=== PATIENT | male | born 1950 | race Two or more races ===

== ENCOUNTER 2017-01-20 10:02 | Day surgery (SDC) | payer MEDICARE, OTHER ==
[2017-01-13 07:51] VITALS: BMI 27.8
[2017-01-20] MEDS ORDERED: Sodium Chloride 0.9% 1,000 ML IV SCH (12:00)
[2017-01-20] MEDS ORDERED: Propofol 10 mg/ml Inj (20 ML) ONE (12:03)
[2017-01-20 13:03] VITALS: PULSE 51
[2017-01-20 13:27] VITALS: BP 150/86; RESP 16; TEMP 97.8; O2SAT 97
== END 2017-01-20 13:33 | disposition home or self-care (01) ==
LOC: ENDO 10:02
PROVIDERS: ATTEND Internal Medicine Gastroenterology
DX: Z12.11 Encounter for screening for malignant neoplasm of colon (principal); K64.8 Other hemorrhoids; I10 Essential (primary) hypertension
CPT/HCPCS: 45378; J2001; J2704; J7040 ×2